=== PATIENT | male | born 1960 | race Caucasian/White ===

== ENCOUNTER 2017-03-19 23:19 | Inpatient (IN) | payer SELFPAY ==
[2017-03-19] MEDS ORDERED: IPRATROPIUM/ALBUTEROL 3 ML VIAL NEB ONE (23:55)
--- NOTE | 2017-03-19 23:58 | ED.PDOC ---
History of Present Illness - General Chief Complaint: Abdominal Pain Stated Complaint: left abd pain, unable to get FSBS at home Time Seen by Provider: 03/19/17 23:22 Source: patient, RN notes reviewed, Vital Signs reviewed Exam Limitations: no limitations - History of Present Illness Initial Comments: Patient c/o L flank pain. Pain started today. He just finished a 10 day course of Zithromax for pneumonia but is not really feeling better. No F/C. No urinary symptoms. No N/V/D. Was not able to get a reading on his glucometer at home and is concerned his BS is high. Timing/Duration: 24 hours Severity: mild Improving Factors: nothing Worsening Factors: nothing Associated Symptoms: cough Allergies/Adverse Reactions: Allergies Aspirin Allergy (Verified 03/19/17 23:53) Penicillins Allergy (Verified 03/19/17 23:53) Home Medications: Ambulatory Orders Lisinopril 40 mg PO DAILY 06/29/14 Albuterol Sulfate Nebs 1 dose NEB Q6HR PRN 10/05/15 Ipratropium/Albuterol [Duoneb] 3 ml INH QID #100 vial 10/08/15 Acetaminophen [Tylenol 8 Hour] 650 mg PO PRN 03/19/17 Albuterol Inhaler [Ventolin Hfa Inhaler] 1 puff INH PRN 03/19/17 Cetirizine HCl 10 mg PO DAILY 03/19/17 Fluticasone/Salmeterol 500/50 [Advair Diskus] 1 puff INH 03/19/17 Potassium 1 ea PO DAILY 03/19/17 Metformin HCl [Metformin HCl ER] 500 mg PO BID 03/20/17 Prednisone 50 mg PO PRN 03/20/17 Review of Systems - Review of Systems Constitutional: States: malaise. Denies: chills, fever EENTM: States: nose congestion, other - Sinus congestion Respiratory: States: cough, short of breath Cardiology: States: no symptoms reported Gastrointestinal/Abdominal: States: abdominal pain - L flank, diarrhea, nausea, vomiting Genitourinary: States: no symptoms reported Musculoskeletal: States: no symptoms reported Skin: States: no symptoms reported Neurological: States: no symptoms reported Past Medical History (General) - Patient Medical History Hx Seizures: No Hx Stroke: No Hx Dementia: No Hx Asthma: Yes Hx of COPD: Yes Hx Cardiac Disorders: No Hx Congestive Heart Failure: No Hx Pacemaker: No Hx Hypertension: Yes Hx Thyroid Disease: No Hx Diabetes: Yes Hx Gastroesophageal Reflux: No Hx Renal Disease: No Hx Cancer: No Hx of HIV: No Hx Hepatitis C: No Hx MRSA: No Surgical History: other - Vaccination History Hx Tetanus, Diphtheria Vaccination: Yes Hx Influenza Vaccination: No Hx Pneumococcal Vaccination: No Immunizations Up to Date: Yes - Social History Hx Tobacco Use: No Hx Chewing Tobacco Use: Yes Hx Alcohol Use: No Hx Substance Use: No Hx Substance Use Treatment: No Hx Depression: No Feels Threatened In Home Enviroment: No Feels Threatened In a Relationship: No Hx Physical Abuse: No Hx Emotional Abuse: No Hx Suspected Abuse: No - Female History Patient : No Family Medical History - Family History Mother Family History: Unknown Name: Phoebe Logan Living Status: Age at (years of age): 62 Cause of : [place] Hx Family Asthma: No Hx Family Congestive Heart Failure: Yes - Mothers side. Hx Family Hypertension: Yes - Siblings. Hx Family Stroke: No Hx Cardiac Disease: Yes - Siblings Hx Family Diabetes: Yes - Siblings Hx Family Cancer: Yes - Sister w/skin CA. Father Family History: Unknown Living Status: Still Living Physical Exam - Physical Exam General Appearance: Alert, Comfortable, No apparent distress, Well Developed, Well Groomed, Well Hydrated, Well Nourished Ears, Nose, Throat: hearing grossly normal, nasal congestion - with green drainage Neck: non-tender, full range of motion, supple Respiratory: no respiratory distress, decreased breath sounds - bilateral bases , wheezing, inspiration Cardiovascular/Chest: regular rate, rhythm, no gallop, no murmur Gastrointestinal/Abdominal: normal bowel sounds, non tender, soft, no organomegaly, no pulsatile mass Back Exam: no CVA tenderness Neurologic: alert, normal mood/affect, oriented x 3 Skin Exam: normal color, warm/dry Comments: Vital Signs - 24 hr 03/19/17 03/19/17 23:35 23:44 Temperature 98.7 F Pulse Rate [ 116 H 116 H monitor] Respiratory 20 20 Rate Blood Pressure 150/76 [Left Arm] O2 Sat by Pulse 86 L Oximetry Progress - Progress Progress: 03/20/17 00:50 Patient with pneumonia that has failed outpatient treatment. Will admit for IV antibiotics. Will draw blood cultures and Lactic Acid. Discussed with hospitalist who agrees to admission - Results/Orders Results/Orders: Laboratory Tests 03/19/17 03/19/17 00:05 00:05 WBC 15.8 H RBC 5.26 Hgb 14.5 Hct 43.3 MCV 82.5 MCH 27.7 MCHC 33.5 RDW 13.2 Plt Count 338 MPV 7.1 L Absolute Neuts (auto) 12.90 H Absolute Lymphs (auto) 1.60 Absolute Monos (auto) 1.10 H Absolute Eos (auto) 0.10 Absolute Basos (auto) 0.10 Neutrophils % 81.7 H Lymphocytes % 10.2 L Monocytes % 6.9 Eosinophils % 0.8 L Basophils % 0.4 Sodium 135 Potassium 3.5 L Chloride 100 L Carbon Dioxide 25 Anion Gap 13.5 BUN 20 H Creatinine 0.72 BUN/Creatinine Ratio 27.8 H Random Glucose 299 H Serum Osmolality 283.9 Calcium 9.5 Total Bilirubin 0.6 AST 14 ALT 22 Alkaline Phosphatase 120 Serum Total Protein 8.2 Albumin 3.8 Globulin 4.4 H Albumin/Globulin Ratio 0.9 L - EKG/XRAY/CT XRAY: chest - L lower and mid lung pneumonia Departure - Departure Clinical Impression: Diabetes mellitus type 2, uncontrolled, without complications Pneumonia involving left lung Qualifiers: Pneumonia type: due to unspecified organism Lung location: lower lobe of lung Qualified Code(s): J18.9 - Pneumonia, unspecified organism Time of Disposition: 00:52 Disposition: Admit Patient Condition: Poor Departure Forms: ED Discharge - Pt. Copy, Patient Portal Self Enrollment Instructions: DI for Abdominal Pain-Adult Referrals: Abi Laurent NP [Primary Care Provider] - 1-2 Weeks Home Medications: Ambulatory Orders Lisinopril 40 mg PO DAILY 06/29/14 Albuterol Sulfate Nebs 1 dose NEB Q6HR PRN 10/05/15 Ipratropium/Albuterol [Duoneb] 3 ml INH QID #100 vial 10/08/15 Acetaminophen [Tylenol 8 Hour] 650 mg PO PRN 03/19/17 Albuterol Inhaler [Ventolin Hfa Inhaler] 1 puff INH PRN 03/19/17 Cetirizine HCl 10 mg PO DAILY 03/19/17 Fluticasone/Salmeterol 500/50 [Advair Diskus] 1 puff INH 03/19/17 Potassium 1 ea PO DAILY 03/19/17 Metformin HCl [Metformin HCl ER] 500 mg PO BID 03/20/17 Prednisone 50 mg PO PRN 03/20/17 Decision To Admit - Decistion To Admit Decision to Admit Reason: Admit from ER - for pneumonia that has failed outpatient treatment
--- NOTE | 2017-03-20 00:29 | RAD ---
Procedure: XR CHEST 2 VIEWS Exam Date: 03/20/2017 Ordering Provider: Kemi Walters Clinical Indication: Cough/congestion Comparison: 10/07/2015 Findings: The heart is not enlarged. Pulmonary vasculature is normal. Mediastinal contour is normal. Aortic contour is normal. Infiltrates in the left mid and lower lung are suspicious for pneumonia. Right lung is clear. No pleural effusion. There is no pneumothorax. There is no acute bony or soft tissue abnormality. Old healed fracture of the left clavicle. Impression: 1. Infiltrates in the left mid and lower lung are suspicious for pneumonia. 2. Follow-up radiographs in 6-8 weeks is recommended to document resolution. Electronically signed by: Osman Rudd MD 03/20/2017 12:28 AM CDT
--- NOTE | 2017-03-20 01:18 | HP ---
SUPERVISING PHYSICIAN: Ganesh Ha M.D. CHIEF COMPLAINT: Left abdominal pain. Unable to get fasting blood sugar at home. HISTORY OF PRESENT ILLNESS: Mr. Logan is a 56 year-old male patient that presented to the Emergency Department complaining of left flank pain that started on the same day of admission. He just finished a 10 day course of Zithromax for pneumonia that he reported not feeling any better after completion. He denied any nausea, vomiting or diarrhea. He does have a history of diabetes and at home was unable to get a reading on his glucometer, and was concerned that his blood sugar was high thus he presented to the Emergency Department. In the Emergency Department, initial laboratory studies showed that he had a white count of 15.8 with a left shift. His chemistries showed glucose of 299 with potassium 3.5, BUN 20, creatinine 0.72. Lactic acid 1.6. Urinalysis showed just 500 glucose, otherwise within normal limits. Chest x-ray per radiology interpretation showed infiltrate in the left mid and lower lung suspicious for pneumonia. Vital signs in the Emergency Department showed that he had moderate hypoxia with a saturation of 86 on room air. He was afebrile with blood pressure 150/76, heart rate 116. Given the findings of left sided pneumonia with leukocytosis and having recently been on a 10 day course of antibiotics but failing to improve, and showing some hypoxia on admission at room air, the patient now is going to be admitted for treatment of left sided pneumonia community acquired having failed to respond to outpatient treatment plan. In regards to the abdominal pain, the patient had no abdominal pain on exam. It was felt that the pain he was describing was more related to the underlying pneumonia. He was admitted to the Medical/Surgical floor in stable condition. PAST MEDICAL HISTORY: 1. Chronic obstructive pulmonary disease with asthma. 2. Type 2 diabetes mellitus on insulin. 3. Hypertension. 4. History of H. pylori infection in 2015. 5. Diffuse joint pain, utilizes cane for walking secondary to right hip pain. PAST SURGICAL HISTORY: 1. Sinus polyps removed. HOME MEDICATIONS: 1. Prednisone 50 mg daily. 2. Tylenol 600 mg daily p.r.n. 3. Cetirizine 10 mg daily. 4. Albuterol inhaler 1 puff inhaled daily as needed. 5. Metformin 500 mg twice daily. 6. Lisinopril 40 mg daily. 7. DuoNeb treatments q.i.d. 8. Advair Diskus 1 puff inhaled daily. 9. Albuterol sulfate nebs every 6 hours p.r.n. ALLERGIES: ASPIRIN AND PENICILLIN. FAMILY HISTORY: Unremarkable. SOCIAL HISTORY: The patient is . Lives in [place]. 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 He smoked many years but quit at 22 years of age. He denies any alcohol or illicit drug use. REVIEW OF SYSTEMS: GENERAL: Malaise but denies any fever or chills. HEENT: Notes some nasal congestion and sinus congestion. RESPIRATORY: Notes shortness of breath and cough as noted in the History of Present Illness. CARDIOVASCULAR: Denies any chest pains, palpitations or syncopal episodes. GASTROINTESTINAL: Abdominal pain left flank but denies any nausea, vomiting or diarrhea. GENITOURINARY: Denies any dysuria, increased frequency or other urinary symptoms. MUSCULOSKELETAL: As noted in the history of present illness, hip pain, chronic. NEUROLOGIC: Denies any neurological deficits. PHYSICAL EXAMINATION: VITAL SIGNS: Admission temperature 98.7 in the Emergency Department with pulse 116, blood pressure 150/76, respirations 20, satting 96% on room air. After breathing treatments and oxygen on admission to the Medical Surgical floor, sats were 92%, blood pressure 121/71. Admission weight 95.3 kg. GENERAL: The patient appears to be in no distress. He does appear ill but well hydrated and well nourished. HEENT: Tympanic membranes are clear bilaterally. There is some nasal congestion with some green drainage as noted. Nares are erythematous and swollen. NECK: Supple, full range of motion without any jugular venous distention. CHEST: Decreased breath sounds in the bases bilaterally with some mild inspiratory wheezing but no rales or rhonchi. CARDIOVASCULAR: Regular rate and rhythm without appreciable murmurs, gallops, or rubs. ABDOMEN: Soft, non-tender. Positive bowel sounds. NEUROLOGIC: He is alert and oriented times three. LABORATORY: White count 15.8 with a shift on the differential. Chemistries showed low sodium at 3.5 with BUN 20, creatinine 0.72, glucose 299. Liver functions showed to be within normal limits. Lactic acid was 1.6. Urinalysis just shows trace of glucose on dipstick, otherwise within normal limits. MICROBIOLOGY: Sputum culture is pending. Blood cultures are pending. RADIOLOGY: Chest x-ray per radiology interpretation shows infiltrates in the left mid and lower lung suspicious for pneumonia. ASSESSMENT: 1. Exacerbation of chronic obstructive pulmonary disease with a history of bronchitis/asthma having failed to respond to recent outpatient treatment plan for pneumonia now showing increasing infiltrates on the left side for left sided pneumonia felt to be community acquired. 2. Left sided pneumonia having failed to respond to outpatient treatment and community acquired now requiring parenteral antibiotics and aggressive pulmonary hygiene with bronchodilators. 3. Type 2 diabetes mellitus complicated from previous corticosteroid administration as an outpatient. 4. Hypertension. 5. Chronic right hip pain. 6. Moderate leukocytosis secondary to underlying community acquired left sided pneumonia. 7. Electrolyte imbalance with mild hypokalemia secondary to poorly controlled blood sugars. 8. Renal insufficiency likely prerenal azotemia secondary to underlying dehydration and complicated by poorly controlled blood sugars. PLAN: The patient will be admitted for treatment of left sided pneumonia having failed to respond to outpatient treatment plan. He will be started on parenteral antibiotics to include Levaquin as he failed to respond to Azithromycin 500 mg for 10 days. Will hold off on corticosteroids at this time because he just has minimal wheezing. Will start him on q.i.d. DuoNeb treatments and aggressive pulmonary hygiene including CPT. Will plan to repeat laboratory studies in the morning to include CBC and BMP. Will start him on DVT prophylaxis and restart his medications when they have been updated and verified. Anticipated length of stay to be 2 to 3 days. Until then, will continue to monitor the patient closely and treat appropriately. Once clinically stable enough to be discharged, he will need close clinical followup with his primary care provider, Javy Peters. In regards to dehydration, will start him on some IV fluids as well as to help replace his potassium. He will be started on normal saline with 20 of potassium at 100 an hour. #[id number] [facility]
[2017-03-20] MEDS ORDERED: traMADol HCL 50 MG TAB PO ONE (01:52)
[2017-03-20] MEDS ORDERED: BENZONATATE PERLES 100 MG CAP PO ONE (01:52)
[2017-03-20] MEDS ORDERED: SODIUM CHLORIDE 0.9% (FLUSH) 10 ML SYG IV PRN (01:53)
[2017-03-20] MEDS ORDERED: GLUCAGON INJ 1 MG VIAL SUBCU PRN (01:53)
[2017-03-20] MEDS ORDERED: ACETAMINOPHEN 325 MG TAB PO PRN (01:53)
[2017-03-20] MEDS ORDERED: ALBUTEROL SULFATE 2.5 MG/3 ML VIAL NEB PRN (01:53)
[2017-03-20] MEDS ORDERED: DEXTROSE 50% 25 GM/50 ML SYG IV PRN (01:53)
[2017-03-20] MEDS: levoFLOXacin 750MG IV 750 MG in PREMIX BAG 1 BAG IVPB SCH (02:06)
[2017-03-20] MEDS: IV SET AND CAP CHANGE INJ INJ SCH (02:53)
[2017-03-20] MEDS: KCL 20 MEQ/NS 1,000 ML IVS PRN ×3 (03:24→23:59)
[2017-03-20] MEDS: INSULIN LISPRO 100 UNITS/ML PEN SUBCU SCH ×4 (07:26→21:09)
[2017-03-20] MEDS: metFORMIN XR 500 MG TAB.ER.24 PO SCH ×2 (09:01→16:34)
[2017-03-20] MEDS: SODIUM CHLORIDE 0.9% (FLUSH) 10 ML SYG IV SCH ×2 (09:01→21:11)
[2017-03-20] MEDS: CETIRIZINE HCL 10 MG TAB PO SCH (09:01)
[2017-03-20] MEDS: IPRATROPIUM/ALBUTEROL 3 ML VIAL INH SCH ×4 (09:15→20:00)
--- NOTE | 2017-03-20 22:10 | PCM.CORE ---
Physician DVT/VTE - Nurse DVT Assessment & Total Each Risk Factor Represents 1 Point: Age 41-60 Each Risk Factor is 1 Point: Obesity (BMI >25), Serious Lung disease (pnemonia < 1month, COPD, emphysema,etc) DVT Assessment Score: 3 - 3-4 High Risk Treatments: Early Ambulation *, Sequential Compression Device Pharmacological: Enoxaparin 40 mg SQ Daily
[2017-03-20] MEDS ORDERED: ENOXAPARIN SODIUM 40 MG/0.4 ML SYG SUBCU SCH (22:30)
[2017-03-21] MEDS: levoFLOXacin 750MG IV 750 MG in PREMIX BAG 1 BAG IVPB SCH (02:25)
--- NOTE | 2017-03-21 06:54 | RAD ---
Procedure: XR CHEST 2 VIEWS Exam Date: 03/21/2017 Ordering Provider: Eric Fairbanks NP Clinical Indication: Pneumonia Comparison: 03/20/2017 Findings: The heart is not enlarged. Pulmonary vasculature is normal. Mediastinal contour is normal. Aortic contour is normal. Infiltrates in the left mid and lower lung are unchanged from prior. No pleural effusion. There is no pneumothorax. There is no acute bony or soft tissue abnormality. Old healed fracture of the left clavicle. Impression: 1. Infiltrates in the left mid and lower lung are suspicious for pneumonia and are not significantly changed from prior. Electronically signed by: Osman Rudd MD 03/21/2017 6:54 AM CDT
[2017-03-21] MEDS: INSULIN LISPRO 100 UNITS/ML PEN SUBCU SCH ×4 (07:48→21:15)
[2017-03-21] MEDS: metFORMIN XR 500 MG TAB.ER.24 PO SCH ×2 (07:49→17:20)
[2017-03-21] MEDS: IPRATROPIUM/ALBUTEROL 3 ML VIAL INH SCH ×4 (08:26→20:15)
[2017-03-21] MEDS: SODIUM CHLORIDE 0.9% (FLUSH) 10 ML SYG IV SCH ×2 (09:06→21:15)
[2017-03-21] MEDS: CETIRIZINE HCL 10 MG TAB PO SCH (09:07)
[2017-03-21] MEDS ORDERED: ENOXAPARIN SODIUM 40 MG/0.4 ML SYG SUBCU ONE (19:53)
--- NOTE | 2017-03-21 20:54 | PN ---
DATE: 03/21/17 SUPERVISING PHYSICIAN: Angelo Rodriguez M.D. SUBJECTIVE: The patient feels like he is doing better today. He is having much less effort in pulling a full breath. He has not had any wheezing. He remains afebrile. OBJECTIVE: VITAL SIGNS: Temperature 98.2, pulse 96, blood pressure 132/73, respirations 19, satting 93% on nasal cannula at 2 liters at rest. I's and O's show a negative balance of 465 with 3010 in, 3475 out. Weight 95.3 kg. LUNGS: Breath sounds continue to be diminished throughout, but somewhat improved from admission. Continues to have some very faint wheezing bilaterally more notable on expiratory phase. HEART: Regular rate and rhythm. ABDOMEN: Soft, non- tender. Positive bowel sounds. NEUROLOGIC: He remains alert and oriented. LABORATORY: Shows white count to be improving, it is down to 12.4 with hemoglobin 12.4, hematocrit 37.6, platelet count 232,000. Differential continues to show a left shift. Chemistries show normal electrolytes with potassium 3.8, BUN 12, creatinine 0.58 with glucoses showing somewhat improved being from 162 to 207, calcium 8.3. MICROBIOLOGY: Sputum culture preliminary shows further need for incubation. Blood cultures remain negative after 24 hours. RADIOLOGY: Chest x-ray today per radiology interpretation shows infiltrates in the left mid and lower lung suspicious for pneumonia but not a significant change from previous exams. ASSESSMENT: 1. Exacerbation of chronic obstructive pulmonary disease with a history of bronchitis/asthma having failed to respond to recent outpatient treatment plan for pneumonia now showing increasing infiltrates in the left side for left sided pneumonia felt to be community acquired having been on Azithromycin for 10 days. 2. Left sided pneumonia having failed to respond to outpatient treatment plan felt to be community acquired now requiring initiation of parenteral antibiotics to include Levaquin along with continued aggressive pulmonary hygiene and bronchodilator therapy. 3. Type 2 diabetes mellitus complicated from previous corticosteroid administration as an outpatient showing to be improving. 4. Hypertension. 5. Chronic right hip pain. 6. Moderate leukocytosis secondary to underlying community acquired left sided pneumonia showing improvement after initiation of parenteral antibiotics to include Levaquin. 7. Electrolyte imbalance on admission with mild hypokalemia secondary to poorly controlled blood sugars, improved after IV therapy and started on a sliding scale. 8. Renal insufficiency likely prerenal azotemia secondary to underlying dehydration and complicated by poorly controlled blood sugars showing improvement after initiation of IV fluids. PLAN: The patient is showing some improvement, but would certainly benefit from an additional 24 to 48 hours of aggressive pulmonary hygiene and parenteral antibiotics that include the initiation of Levaquin. At this point, will hold off on corticosteroids as he is showing improvement and not wheezing near as much as he was on admission. He was started on DVT prophylaxis and his home medications have been resumed as per previous hospitalization. Will anticipate possible discharge tomorrow or Sunday. Until then, will continue to monitor the patient closely. Once the patient is clinically stable and can be discharged, he will need close clinical followup with his primary care provider , Javy Peters, Nurse Practitioner. #[id number] [facility]
[2017-03-21] MEDS ORDERED: SODIUM CHLORIDE 0.9% (FLUSH) 10 ML SYG IV SCH (21:00)
[2017-03-21] MEDS: ENOXAPARIN SODIUM 40 MG/0.4 ML SYG SUBCU SCH (21:15)
[2017-03-22] MEDS: levoFLOXacin 750MG IV 750 MG in PREMIX BAG 1 BAG IVPB SCH (02:25)
--- NOTE | 2017-03-22 06:59 | RAD ---
Clinical History : pneumonia , MAIN Exam : PA and lateral views of the chest 03/22/2017 7:00 AM CDT Comparisons : PA and lateral views of the chest March 21, 2017 Findings : The lung bases are excluded on this exam was limited evaluation. There is stable confluent left lower lobe airspace disease. The lungs are clear without focal consolidation or pleural effusion. The heart is normal in size. The mediastinal contours are normal in appearance. The thoracic spine is age appropriate. The shoulders are unremarkable. Limited evaluation of the upper abdomen demonstrates no gross abnormalities. Impression: 1. Exclusion of the lung bases limiting evaluation. 2. Otherwise grossly stable left lower lobe airspace disease. Electronically signed by: Dianne Caceres MD 03/22/2017 6:59 AM CDT
[2017-03-22] MEDS: INSULIN LISPRO 100 UNITS/ML PEN SUBCU SCH ×4 (07:43→21:03)
[2017-03-22] MEDS: metFORMIN XR 500 MG TAB.ER.24 PO SCH ×2 (07:44→16:26)
[2017-03-22] MEDS: IPRATROPIUM/ALBUTEROL 3 ML VIAL INH SCH ×4 (08:13→20:05)
[2017-03-22] MEDS: CETIRIZINE HCL 10 MG TAB PO SCH (08:54)
[2017-03-22] MEDS: SODIUM CHLORIDE 0.9% (FLUSH) 10 ML SYG IV SCH ×2 (08:54→21:03)
--- NOTE | 2017-03-22 19:04 | PN ---
DATE: 03/22/17 SUPERVISING PHYSICIAN: Angelo Rodriguez M.D. SUBJECTIVE: The patient is sitting in his bed. He still says he is quite weak at times, but he is feeling better and feels that his condition has improved. He is still coughing quite a bit of sputum up, but otherwise he does not complain of chest pain, shortness of breath or nausea, vomiting or diarrhea. OBJECTIVE: He is afebrile. Heart rate 93, blood pressure 131/74, respiratory rate 20, O2 sat is 91% on 2 liters nasal cannula. RESPIRATORY: Breath sounds are diminished throughout. He does have a few expiratory wheezes but it is mostly in the apices. CARDIAC: Regular rate and rhythm. ABDOMEN: Soft, nondistended, non-tender. Bowel sounds are positive. NEUROLOGIC: He is awake, alert and oriented times three. LABORATORY: WBCs have slightly improved to 11.2 and neutrophils have normalized to 76.7. Hemoglobin 13.3 and hematocrit 39.8. Metabolic panel is basically within normal limits with the exception of his blood sugar is 187. Preliminary sputum culture shows a suspicious colony and needs further incubation. Preliminary blood cultures show no growth at 48 hours. Chest x-ray shows an exclusion of the lung bases with limiting evaluation which makes it a poor study. All other labs and films have been reviewed via the EMR. ASSESSMENT: 1. Exacerbation of chronic obstructive pulmonary disease with a history of bronchitis/asthma having failed to respond to recent outpatient treatment plan for pneumonia now showing increasing infiltrates in the left side for left sided pneumonia felt to be community acquired having been on Azithromycin for 10 days. 2. Left sided pneumonia having failed to respond to outpatient treatment plan felt to be community acquired now requiring initiation of parenteral antibiotics to include Levaquin along with continued aggressive pulmonary hygiene and bronchodilator therapy. 3. Type 2 diabetes mellitus complicated from previous corticosteroid administration as an outpatient showing to be improving. 4. Hypertension. 5. Chronic right hip pain. 6. Moderate leukocytosis secondary to underlying community acquired left sided pneumonia showing improvement after initiation of parenteral antibiotics to include Levaquin. 7. Electrolyte imbalance on admission with mild hypokalemia secondary to poorly controlled blood sugars, improved after IV therapy and started on a sliding scale. 8. Renal insufficiency likely prerenal azotemia secondary to underlying dehydration and complicated by poorly controlled blood sugars showing improvement after initiation of IV fluids. PLAN: We will plan for discharge tomorrow as long as the patient is improving and will need to be sent out on Levaquin unless his sputum culture shows that he needs to be on a different antibiotic. We will continue with good pulmonary toilet. Will do a chest x-ray in the morning, hopefully it will be a better study. Will continue to monitor the patient closely and followup as needed. [facility][id number] [facility]
[2017-03-22] MEDS: ENOXAPARIN SODIUM 40 MG/0.4 ML SYG SUBCU SCH (21:03)
[2017-03-23] MEDS: levoFLOXacin 750MG IV 750 MG in PREMIX BAG 1 BAG IVPB SCH (02:03)
[2017-03-23] MEDS: IV SET AND CAP CHANGE INJ INJ SCH (02:05)
--- NOTE | 2017-03-23 08:02 | RAD ---
Procedure: XR CHEST 2 VIEWS Exam Date: 03/23/2017 Ordering Provider: MG CARCAMO Clinical Indication: pna Comparison: 03/22/2017 Findings: The heart is not enlarged. Pulmonary vasculature is prominent. Mediastinal contour is normal. Aortic contour is normal. Stable left basilar infiltrates. Right basilar infiltrates are more apparent on today's exam. Subsegmental atelectasis/scarring in the left midlung field. No pleural effusion. There is no pneumothorax. There is no acute bony or soft tissue abnormality. Impression: 1. Stable left basilar infiltrates. 2. Right basilar infiltrates are more apparent on today's exam. 3. No other significant interval change. Electronically signed by: Osman Rudd MD 03/23/2017 8:01 AM CDT
[2017-03-23] MEDS: INSULIN LISPRO 100 UNITS/ML PEN SUBCU SCH ×2 (08:12→12:53)
[2017-03-23] MEDS: metFORMIN XR 500 MG TAB.ER.24 PO SCH (08:13)
[2017-03-23] MEDS: IPRATROPIUM/ALBUTEROL 3 ML VIAL INH SCH (08:40)
[2017-03-23] MEDS: CETIRIZINE HCL 10 MG TAB PO SCH (10:09)
[2017-03-23] MEDS: SODIUM CHLORIDE 0.9% (FLUSH) 10 ML SYG IV SCH (10:09)
[2017-03-23 10:36] VITALS: BP 129/75; TEMP 97.6; O2SAT 94
--- NOTE | 2017-03-29 08:18 | DS ---
SUPERVISING PHYSICIAN: Angelo Rodriguez MD DISCHARGE DIAGNOSIS: 1. Exacerbation of chronic obstructive pulmonary disease with a history of bronchitis/asthma having failed to respond to recent outpatient treatment plan for pneumonia now showing increasing infiltrates in the left side for left sided pneumonia felt to be community acquired having been on Azithromycin for 10 days. 2. Left sided pneumonia having failed to respond to outpatient treatment plan felt to be community acquired now requiring initiation of parenteral antibiotics to include Levaquin along with continued aggressive pulmonary hygiene and bronchodilator therapy. 3. Type 2 diabetes mellitus complicated from previous corticosteroid administration as an outpatient showing to be improving. 4. Hypertension. 5. Chronic right hip pain. 6. Moderate leukocytosis secondary to underlying community acquired left sided pneumonia showing improvement after initiation of parenteral antibiotics to include Levaquin. 7. Electrolyte imbalance on admission with mild hypokalemia secondary to poorly controlled blood sugars, improved after IV therapy and started on a sliding scale. 8. Renal insufficiency likely prerenal azotemia secondary to underlying dehydration and complicated by poorly controlled blood sugars showing improvement after initiation of IV fluids. HISTORY OF PRESENT ILLNESS: This is a 56-year-old male patient who presented to the Emergency Room on the date of admission complaining of left flank pain that had started earlier on day of admission. He had just finished a 10 day course of Zithromax from his primary care physician and he stated he did not feel any better after completion. He had no nausea, vomiting or diarrhea. He has a history of diabetes at home and was unable to get a reading on his glucometer. He was also concerned that his blood sugars were high. His initial lab studies in the Emergency Room showed in a white count of 15.8 with a left shift. Glucose was 299, potassium 3.5, BUN 20, creatinine 0.72, lactic acid 11.6. Urinalysis showed 500 glucose, otherwise within normal limits. Chest x-ray per radiology interpretation showed an infiltrate in the mid and left lower lung, suspicious for pneumonia. O2 saturation on room air was 86% and he was afebrile. Blood pressure 150/76, heart rate 116. Due to his chest x-ray showing pneumonia and leukocytosis and also failing outpatient therapy as well as some hypoxia and tachycardia on admission, the patient was admitted to the hospital. HOSPITAL COURSE: The patient was started on Levaquin. He was also given breathing treatments as well as good pulmonary hygiene. He improved clinically over the next day or two. His initial sputum was thought to be growing something, but ended up showing no growth after 48 hours. He was up ambulating in the hallways today. He had no drops in saturations. His vital signs remained stable. His heart rate did occasionally go up to above 100, but he had no symptoms of chest pain or shortness of breath. He can be discharged home today. DISCHARGE PLAN: He will be discharged home in stable condition. He is to resume his diabetic diet, increase activity as tolerated. He is to followup with his primary care provider, Javy Peters, on 03/26/17 at 8 AM. He is to return to the hospital or his primary care provider's clinic for any further problems. DISCHARGE MEDICATIONS: 1. Lisinopril. 2. Potassium. 3. Advair Diskus. 4. Cetirizine. 5. Albuterol. 6. Acetaminophen. 7. Metformin. 8. Levaquin. Dr. Rodriguez is the collaborating physician and available for consultation. #[id number] [facility]
== END 2017-03-23 14:30 | disposition home or self-care (01) | DRG 190 ==
LOC: ER 23:19 → OBSVTOIN 03-20 01:17 → MS 03-20 01:17
PROVIDERS: ADMIT Nurse Practitioner Family; ATTEND Nurse Practitioner Acute Care
DX: J44.0 Chronic obstructive pulmonary disease with (acute) lower respiratory infection (principal); J18.9 Pneumonia, unspecified organism; J44.1 Chronic obstructive pulmonary disease with (acute) exacerbation; I10 Essential (primary) hypertension; G89.29 Other chronic pain; M25.551 Pain in right hip; E11.65 Type 2 diabetes mellitus with hyperglycemia; E87.6 Hypokalemia; N28.9 Disorder of kidney and ureter, unspecified; E86.0 Dehydration; Z88.0 Allergy status to penicillin; Z88.6 Allergy status to analgesic agent; Z79.899 Other long term (current) drug therapy; Z79.84 Long term (current) use of oral hypoglycemic drugs

== ENCOUNTER → 2017-04-12 | Outpatient (CLI) | payer SELFPAY ==
--- NOTE | 2017-04-13 09:10 | RAD ---
EXAM DESCRIPTION: Hip,Right 2 Views CLINICAL HISTORY: PAIN IN RIGHT HIP COMPARISON: None Available. TECHNIQUE: AP/frog leg lateral FINDINGS: The bones are normally mineralized but severe [id number] degenerative arthropathy with subcortical cystic changes is present involving both the acetabulum and femoral head without significant collapse. Advanced osteoarthritis or perhaps severe degenerative changes from old osteonecrosis should be considered. The femoral neck and intertrochanteric region are intact. IMPRESSION: Severe end-stage degenerative arthropathy of the right hip with [id number] appearance and marked cystic erosive changes of both sides of the joint. Electronically signed by: Ganesh Alamo MD 04/13/2017 9:09 AM CDT
== END | disposition home or self-care (01) ==
LOC: RAD 13:48
PROVIDERS: ATTEND Nurse Practitioner Family
DX: M25.551 Pain in right hip (principal)

== ENCOUNTER → 2017-08-16 | Outpatient (CLI) | payer SELFPAY | END | disposition home or self-care (01) | LOC: YCFC.O 09:34 | PROVIDERS: ATTEND Orthopaedic Surgery | DX: M16.11 Unilateral primary osteoarthritis, right hip (principal) ==

== ENCOUNTER → 2017-08-17 | Outpatient (CLI) | payer SELFPAY ==
--- NOTE | 2017-08-20 08:23 | RAD ---
EXAM DESCRIPTION: Knee,Left Complete CLINICAL HISTORY: 57 yearsMale, LEFT KNEE PAIN. M25.562 COMPARISON: None. IMPRESSION: 4 views of the left knee demonstrate no evidence of acute fracture, dislocation, or destructive osseous lesion. Mild changes of osteoarthritis are present involving all 3 compartments of the knee. There is mild narrowing of the joint spaces and marginal osteophytes. Scattered vascular calcifications. There is a suprapatellar joint effusion present. If indicated, MRI may further evaluate. Electronically signed by: Drake Colón MD 08/20/2017 8:21 AM CDT
--- NOTE | 2017-08-20 08:25 | RAD ---
EXAM DESCRIPTION: Knee,Right Complete CLINICAL HISTORY: 57 yearsMale, RIGHT KNEE PAIN. M25.561 COMPARISON: None. IMPRESSION: 4 views of the right knee demonstrate no evidence of acute fracture, dislocation, or destructive osseous lesion. Mild changes of osteoporosis arthritis are present involving all 3 compartments of the knee with narrowing of the joint spaces and marginal osteophytes. There is a suprapatellar joint effusion present. If indicated, MRI may further evaluate. Electronically signed by: Drake Colón MD 08/20/2017 8:24 AM CDT
--- NOTE | 2017-08-20 08:29 | RAD ---
EXAM DESCRIPTION: Pelvis CLINICAL HISTORY: BILATERAL HIP PAIN. M25.552, M25.551. COMPARISON: None FINDINGS: Single frontal view the pelvis. Complete joint space loss with subchondral sclerosis and cystlike change of the right hip is present consistent with advanced endstage osteoarthritis. Contralateral left hip is normal in appearance. Mild symmetric bilateral degenerative sacroiliitis is present. Pelvic ring is intact. Osteitis pubis-normal patient's age. IMPRESSION: End-stage degenerative osteoarthritis of the right hip. Radiographically intact contralateral left hip. Electronically signed by: Dontae Fabian MD 08/20/2017 8:28 AM CDT
--- NOTE | 2017-08-20 08:29 | RAD ---
EXAM DESCRIPTION: Wrist, left 3 Views CLINICAL HISTORY: 57 yearsMale, LEFT WRIST PAIN. M25.532 COMPARISON: None. IMPRESSION: 3 views of the left wrist demonstrate severe arthritis with joint space narrowing of the radiocarpal joints. There is subchondral sclerosis and cystic change in the distal radius as well as the distal ulna. Bone mineral density appears normal. The findings are nonspecific, but most likely secondary to osteoarthritis or posttraumatic arthritis. An inflammatory arthropathy is not excluded given the findings, and a baseline rheumatology consultation may be of benefit. Narrowing and hypertrophic changes of the scapholunate interval are demonstrated. Moderate degenerative changes in the STT joint. No evidence of acute fracture or destructive osseous lesion. Scattered vascular calcifications. Electronically signed by: Drake Colón MD 08/20/2017 8:28 AM CDT
--- NOTE | 2017-08-20 08:31 | RAD ---
EXAM DESCRIPTION: Wrist,Right 3 Views CLINICAL HISTORY: 57 yearsMale, RIGHT WRIST PAIN. M25.532 COMPARISON: None. IMPRESSION: 3 views of the right wrist demonstrate no evidence of acute fracture, dislocation, or destructive osseous lesion. There is mild narrowing of the radiocarpal joint spaces, with no radiographic evidence of subchondral sclerosis or cystic change. Mild degenerative changes noted in the STT and first carpometacarpal joints, likely secondary to osteoarthritis. Extensive vascular calcifications are demonstrated. Electronically signed by: Drake Colón MD 08/20/2017 8:29 AM CDT
== END | disposition home or self-care (01) ==
LOC: RAD 08:56
PROVIDERS: ATTEND Orthopaedic Surgery
DX: M25.561 Pain in right knee (principal); M25.551 Pain in right hip; M25.531 Pain in right wrist

== ENCOUNTER → 2017-08-24 | Outpatient (CLI) | payer SELFPAY | END | disposition home or self-care (01) | LOC: LAB.O 09:19 | DX: E11.9 Type 2 diabetes mellitus without complications (principal) ==

== ENCOUNTER 2017-10-25 13:59 | Emergency (ER) | payer SELFPAY ==
[2017-10-25 14:17] VITALS: TEMP 99.9
--- NOTE | 2017-10-25 15:21 | RAD ---
Study: Frontal and Lateral Views of the Chest. Indication: progressive weakness, wt loss Comparison: March 23, 2017. Impression: Heart size normal. Emphysema, otherwise lungs clear. No acute osseous abnormality. Electronically signed by: Iggy Page MD 10/25/2017 3:20 PM [facility]
[2017-10-25] MEDS: INSULIN LISPRO 100 UNITS/ML PEN SUBCU ONE (15:56)
--- NOTE | 2017-10-25 16:17 | ED.PDOC ---
History of Present Illness - General Chief Complaint: General Stated Complaint: weakness,weight loss Time Seen by Provider: 10/25/17 14:18 Source: patient Exam Limitations: no limitations - History of Present Illness Initial Comments: The patient is a 57-year-old male presenting to the emergency room secondary to symptoms of fatigue, abnormal weight loss, and increasing generalized weakness over the last 6 months. he denies any fevers. He has been diagnosed with rheumatoid arthritis and does take methotrexate and has been on it for the last 2 months. he is also a type II diabetic reporting borderline blood sugar control. He reports poor appetite for the last 5 or 6 months. He reports that he's lost approximately 60 pounds in the last 8 months. He has had a few episodes of nausea and vomiting without blood. He has regular bowel movements. he has no dizziness or syncope. He has no problems swallowing. He actually moves all extremities well have some mild generalized weakness on objective exam. He reports that he has a bad right hip that he has not yet had operated on. He is supposed to get his rheumatoid under control before he can do that. he reports starting to use a cane and a walker approximately 6 month He reports starting to use a wheelchair intermittently over the last 2 months. He does not report any significant falls. No new pain. he reports that over the last 2 weeks he has been having a harder time getting in and out of the wheelchair. His activity level has been very low. He has not been doing exercises. He was apparently told to come up here by his aerospace technician because the symptoms were not normal. I do agree they are not normal. No focal myalgias. No skin changes. Timing/Duration: unsure Severity: moderate Improving Factors: nothing Worsening Factors: nothing Associated Symptoms: loss of appetite, malaise, nausea/vomiting, weakness Allergies/Adverse Reactions: Allergies Aspirin Allergy (Verified 03/19/17 23:53) NSAIDs Allergy (Verified 10/25/17 14:19) Penicillins Allergy (Verified 03/19/17 23:53) Home Medications: Ambulatory Orders Lisinopril 40 mg PO DAILY 06/29/14 Albuterol Inhaler [Ventolin Hfa Inhaler] 1 puff INH PRN 03/19/17 Cetirizine HCl 10 mg PO DAILY 03/19/17 Fluticasone/Salmeterol 500/50 [Advair 500/50 Diskus] 1 puff INH BID 03/19/17 Metformin HCl [Metformin HCl ER] 500 mg PO BID 03/20/17 Albuterol Sulfate Nebs [Proventil Nebs] 2.5 mg INH QID PRN 03/22/17 Famotidine 20 mg PO DAILY #30 tab 10/25/17 Fluticasone Propionate (Nasal) [Allergy Relief] 50 mcg NA DAILY 10/25/17 Folic Acid 1 mg PO DAILY 10/25/17 Glyburide 2.5 mg PO DAILY 10/25/17 Methotrexate Sodium [Methotrexate] 6 each PO SA 10/25/17 Multiple Vitamin [Multi Vitamin Daily] 1 tab PO DAILY 10/25/17 Potassium 99 mg PO DAILY 10/25/17 traMADol 37.5MG/APAP 325MG [Ultracet] 1 tab PO Q4H PRN 10/25/17 Review of Systems - Review of Systems Constitutional: States: malaise, weakness - generalized EENTM: States: no symptoms reported Respiratory: States: no symptoms reported Cardiology: States: no symptoms reported Gastrointestinal/Abdominal: States: no symptoms reported Genitourinary: States: no symptoms reported Musculoskeletal: States: see HPI Skin: States: no symptoms reported Neurological: States: no symptoms reported, weakness Endocrine: States: unexplained weight loss All other Systems: No Change from Baseline Past Medical History (General) - Patient Medical History Hx Seizures: No Hx Stroke: No Hx Dementia: No Hx Asthma: Yes Hx of COPD: No Hx Cardiac Disorders: No Hx Congestive Heart Failure: No Hx Pacemaker: No Hx Hypertension: Yes Hx Thyroid Disease: No Hx Diabetes: Yes Hx Gastroesophageal Reflux: No Hx Renal Disease: No Hx Cancer: No Hx of HIV: No Hx Hepatitis C: No Hx MRSA: No - Vaccination History Hx Tetanus, Diphtheria Vaccination: Yes Hx Influenza Vaccination: No Hx Pneumococcal Vaccination: Yes - Social History Hx Tobacco Use: Yes Hx Chewing Tobacco Use: Yes Hx Alcohol Use: No Hx Substance Use: No Hx Substance Use Treatment: No Hx Depression: No Hx Physical Abuse: No Hx Emotional Abuse: No Hx Suspected Abuse: No - Female History Patient : No Family Medical History - Family History Mother Family History: Unknown Name: Phoebe Logan Living Status: Age at (years of age): 63 Cause of : [place] Hx Family Asthma: No Hx Family Congestive Heart Failure: Yes - Mothers side. Hx Family Hypertension: Yes - Siblings. Hx Family Stroke: No Hx Cardiac Disease: Yes - Siblings Hx Family Diabetes: Yes - Siblings Hx Family Cancer: Yes - Sister w/skin CA. Father Family History: Unknown Living Status: Still Living Physical Exam - Physical Exam General Appearance: Alert, Comfortable, No apparent distress Eye Exam: bilateral normal Ears, Nose, Throat: hearing grossly normal, normal ENT inspection, normal pharynx Neck: full range of motion, supple Respiratory: lungs clear, normal breath sounds, no respiratory distress, no accessory muscle use Cardiovascular/Chest: normal peripheral pulses, no edema, tachycardia - mild sinus tachycardia Peripheral Pulses: radial,right: 2+, radial,left: 2+, dorsalis pedis,right: 2+, dorsalis pedis,left: 2+ Gastrointestinal/Abdominal: non tender, soft Rectal Exam: deferred Back Exam: no CVA tenderness, no vertebral tenderness Extremity: normal range of motion, no pedal edema, no calf tenderness, normal capillary refill Neurologic: supply and distribution manager II-XII nml as tested, alert, normal mood/affect, oriented x 3 Skin Exam: normal color Comments: Vital Signs - 24 hr 10/25/17 10/25/17 14:13 15:15 Temperature 99.9 F H Pulse Rate [ 118 H 101 H Left Brachial] Respiratory 20 20 Rate Blood Pressure 160/73 138/72 [Left Arm] O2 Sat by Pulse 97 95 Oximetry Progress - Progress Progress: 10/25/17 16:20 the patient is a 57-year-old male presenting the emergency room secondary to a six-month progression of generalized weakness and weight loss. The patient is currently on methotrexate for rheumatoid arthritis. Weakness at this point does not appear to be focal and seems to be clinically more a progression of deconditioning. He should start an exercise program and does already have plans to do water aerobics. laboratory work largely looks reassuring. There is no elevation in muscle enzymes. He should be reevaluated by his aerospace technician in the near future to make sure they do not believe he is developing any myositis or myopathy related to his autoimmune disease or medication to treat it. He is to continue his folic acid. Prednisone is not a good option given his diabetes. he needs to discuss with his primary care doctor potentially changing his metformin to another medication as this may be causing some appetite suppression. Additionally I'm going to place the patient on Pepcid 20 mg daily for the next month and case gastritis is contributing to his weight loss. Additionally the patient does have some very mild anemia. It would be beneficial for him to have a referral made through his primary care doctor and evaluation with gastroenterology for possible EGD and colonoscopy. Mild anemia may be due to myelosuppression from medications as well.. Along with the anemia, he does have a mildly elevated globulin fraction, so referral from his primary care doctor to a supervisor component assembler may yet prove beneficial. he should follow-up with his primary care doctor next week. ER warnings are given for any acute change. - Results/Orders Results/Orders: Laboratory Tests 10/25/17 10/25/17 10/25/17 14:46 14:46 15:39 WBC 11.1 H RBC 4.17 L Hgb 11.4 L Hct 34.1 L MCV 81.7 MCH 27.3 MCHC 33.5 RDW 14.3 Plt Count 406 H MPV 6.3 L Absolute Neuts (auto) 8.20 H Absolute Lymphs (auto) 1.70 Absolute Monos (auto) 1.10 H Absolute Eos (auto) 0.10 Absolute Basos (auto) 0.10 Neutrophils % 74.0 Lymphocytes % 14.9 L Monocytes % 9.6 H Eosinophils % 1.0 Basophils % 0.5 Sodium 133 L Potassium 4.0 Chloride 100 L Carbon Dioxide 27 Anion Gap 10.0 L BUN 14 Creatinine 0.52 L BUN/Creatinine Ratio 26.9 H Random Glucose 235 H Serum Osmolality 274.4 L Calcium 9.0 Magnesium 1.8 Total Bilirubin 0.3 AST 18 ALT 25 Alkaline Phosphatase 81 Creatine Kinase 23 L CK-MB (CK-2) 0.6 CK-MB (CK-2) % Not Reportable Troponin I < 0.02 B-Natriuretic Peptide < 5.0 Serum Total Protein 7.4 Albumin 3.1 L Globulin 4.3 H Albumin/Globulin Ratio 0.7 L Amylase 39 Lipase 34 TSH 0.49 Urine Color Yellow Urine Appearance Clear Urine pH 6.0 Ur Specific [place] 1.010 Urine Protein Negative Urine Glucose (UA) 500 H Urine Ketones Negative Urine Blood Negative Urine Nitrite Negative Urine Bilirubin Negative Urine Urobilinogen 0.2 Ur Leukocyte Esterase Negative Urine RBC 0 Urine WBC 0-1 Ur Epithelial Cells 0 Urine Bacteria 0 chest x-ray appears benign. He does have long-standing findings of COPD Departure - Departure Clinical Impression: Physical deconditioning, Weight loss, abnormal Disposition: Discharge to Home or Self Care Condition: Fair Departure Forms: ED Discharge - Pt. Copy, Patient Portal Self Enrollment Instructions: DI for Muscle Weakness Diet: diabetic diet Activity: increase activity as tolerated Referrals: Laurel Fitch MD [Primary Care Provider] - 1-2 Weeks Prescriptions: Famotidine 20 mg PO DAILY #30 tab Home Medications: Ambulatory Orders Lisinopril 40 mg PO DAILY 06/29/14 Albuterol Inhaler [Ventolin Hfa Inhaler] 1 puff INH PRN 03/19/17 Cetirizine HCl 10 mg PO DAILY 03/19/17 Fluticasone/Salmeterol 500/50 [Advair 500/50 Diskus] 1 puff INH BID 03/19/17 Metformin HCl [Metformin HCl ER] 500 mg PO BID 03/20/17 Albuterol Sulfate Nebs [Proventil Nebs] 2.5 mg INH QID PRN 03/22/17 Famotidine 20 mg PO DAILY #30 tab 10/25/17 Fluticasone Propionate (Nasal) [Allergy Relief] 50 mcg NA DAILY 10/25/17 Folic Acid 1 mg PO DAILY 10/25/17 Glyburide 2.5 mg PO DAILY 10/25/17 Methotrexate Sodium [Methotrexate] 6 each PO SA 10/25/17 Multiple Vitamin [Multi Vitamin Daily] 1 tab PO DAILY 10/25/17 Potassium 99 mg PO DAILY 10/25/17 traMADol 37.5MG/APAP 325MG [Ultracet] 1 tab PO Q4H PRN 10/25/17 Additional Instructions: the patient is a 57-year-old male presenting the emergency room secondary to a six-month progression of generalized weakness and weight loss. The patient is currently on methotrexate for rheumatoid arthritis. Weakness at this point does not appear to be focal and seems to be clinically more a progression of deconditioning. He should start an exercise program and does already have plans to do water aerobics. if his primary care doctor can arrange for physical therapy that may prove even more beneficial. laboratory work largely looks reassuring. There is no elevation in muscle enzymes. He should be reevaluated by his aerospace technician in the near future to make sure they do not believe he is developing any myositis or myopathy related to his autoimmune disease or medication to treat it. He is to continue his folic acid. Prednisone is not a good option given his diabetes. he needs to discuss with his primary care doctor potentially changing his metformin to another medication as this may be causing some appetite suppression. Additionally I'm going to place the patient on Pepcid 20 mg daily for the next month and case gastritis is contributing to his weight loss. Additionally the patient does have some very mild anemia. It would be beneficial for him to have a referral made through his primary care doctor and evaluation with gastroenterology for possible EGD and colonoscopy. Mild anemia may be due to myelosuppression from medications as well.. Along with the anemia, he does have a mildly elevated globulin fraction, so referral from his primary care doctor to a supervisor component assembler may yet prove beneficial. he should follow-up with his primary care doctor next week. ER warnings are given for any acute change.
[2017-10-25 16:38] VITALS: BP 145/85
[2017-10-25 16:42] VITALS: O2SAT 96
== END 2017-10-25 16:42 | disposition home or self-care (01) ==
LOC: ER 13:59
DX: R63.4 Abnormal weight loss (principal); R53.81 Other malaise; M06.9 Rheumatoid arthritis, unspecified; D64.9 Anemia, unspecified; Z79.899 Other long term (current) drug therapy; J44.9 Chronic obstructive pulmonary disease, unspecified; I10 Essential (primary) hypertension; E11.9 Type 2 diabetes mellitus without complications; Z87.891 Personal history of nicotine dependence
CPT/HCPCS: 36415; 71020; 80053; 81001; 82150; 82550; 82553; 83690; 83735; 83880; 84443; 84484; 85025; J1815

== ENCOUNTER → 2018-11-04 | Outpatient (CLI) | payer SELFPAY | LOC: YCFC.O 07:43 | PROVIDERS: ATTEND Family Medicine | DX: E11.9 Type 2 diabetes mellitus without complications (principal) ==

== ENCOUNTER 2020-08-18 04:58 | Emergency (ER) | payer SELFPAY ==
[2020-08-18] MEDS ORDERED: IPRATROPIUM/ALBUTEROL 3 ML VIAL NEB ONE (05:25)
[2020-08-18] MEDS ORDERED: METOPROLOL TARTRATE 50 MG TAB PO ONE (05:26)
--- NOTE | 2020-08-18 05:32 | ED.PDOC ---
History of Present Illness - General Chief Complaint: Blood Pressure Problem Stated Complaint: high B/P reading at home Time Seen by Provider: 08/18/20 05:14 Source: patient Exam Limitations: no limitations - History of Present Illness Initial Comments: The patient is a 60-year-old male presented emergency room secondary to waking up an hour ago with little bit of chest pain that resolved after a few minutes. He checked his blood pressure and found his blood pressure to be in the 200s over 100s. It is still there now however the patient's chest pain went away soon after he came. He did take a 40 mg lisinopril, which she does take normally each morning about 30 minutes prior to arrival. He also takes amlodipine 10 mg at night which she reports that he did take last night. He is a diabetic. He normally reports that his blood pressure on the systolic and runs around 160. Again he is currently asymptomatic. No headache or syncope. No palpitations. No diaphoresis. The patient reports that he had a couple of episodes of nausea and vomiting couple days ago and does have intermittent diarrhea related to his metformin use. He denies any fever. He is pleasant and cooperative. He is in no acute distress. He does have some wheezes that are audible without a stethoscope and with stethoscope most wheezes and rales localized to the right lower lobe. No known coronavirus exposure though there has been a surge on local cases recently. Timing/Duration: 1-3 hours Severity: mild Improving Factors: nothing Worsening Factors: nothing Associated Symptoms: chest pain Allergies/Adverse Reactions: Allergies Aspirin Allergy (Verified 08/18/20 05:13) NSAIDs Allergy (Verified 08/18/20 05:13) Penicillins Allergy (Verified 03/19/17 23:53) Home Medications: Ambulatory Orders Lisinopril 40 mg PO QAM 06/29/14 Albuterol Inhaler [Ventolin Hfa Inhaler] 1 puff INH PRN 03/19/17 Fluticasone/Salmeterol 500/50 [Advair 500/50 Diskus] 1 puff INH BID 03/19/17 Metformin HCl [Metformin HCl ER] 850 mg PO BID 03/20/17 Albuterol Sulfate Nebs [Proventil Nebs] 2.5 mg INH QID PRN 03/22/17 Potassium Gluconate [Potassium] 99 mg PO DAILY 10/25/17 Acetaminophen [Tylenol] 500 mg PO PRN 08/18/20 Amlodipine Besylate 10 mg PO QPM 08/18/20 Hydroxychloroquine Sulfate [Hydroxychloroquine Sulfat] 200 mg PO BID 08/18/20 Leflunomide [Arava] 20 mg PO DAILY 08/18/20 Montelukast [Singulair] 10 mg PO DAILY 08/18/20 Sertraline HCl [Zoloft] 100 mg PO DAILY 08/18/20 Sulfasalazine 1,500 mg PO BID 08/18/20 Review of Systems - Review of Systems Constitutional: States: no symptoms reported EENTM: States: no symptoms reported Respiratory: States: no symptoms reported Cardiology: States: chest pain Gastrointestinal/Abdominal: States: no symptoms reported Genitourinary: States: no symptoms reported Musculoskeletal: States: no symptoms reported Skin: States: no symptoms reported Neurological: States: anxiety Endocrine: States: no symptoms reported Hematologic/Lymphatic: States: no symptoms reported All other Systems: No Change from Baseline Past Medical History (General) - Patient Medical History Hx Seizures: No Hx Stroke: No Hx Dementia: No Hx Asthma: Yes Hx of COPD: No Hx Cardiac Disorders: No Hx Congestive Heart Failure: No Hx Pacemaker: No Hx Hypertension: Yes Hx Thyroid Disease: No Hx Diabetes: Yes Hx Gastroesophageal Reflux: No Hx Renal Disease: No Hx Cancer: No Hx of HIV: No Hx Hepatitis C: No Hx MRSA: No - Vaccination History Hx Tetanus, Diphtheria Vaccination: Yes Hx Influenza Vaccination: No Hx Pneumococcal Vaccination: Yes - Social History Hx Tobacco Use: Yes Hx Chewing Tobacco Use: Yes Hx Alcohol Use: No Hx Substance Use: No Hx Substance Use Treatment: No Hx Depression: No Hx Physical Abuse: No Hx Emotional Abuse: No Hx Suspected Abuse: No - Female History Patient : No Family Medical History - Family History Mother Family History: Unknown Name: Phoebe Logan Living Status: Age at (years of age): 62 Cause of : [place] Hx Family Asthma: No Hx Family Congestive Heart Failure: Yes - Mothers side. Hx Family Hypertension: Yes - Siblings. Hx Family Stroke: No Hx Cardiac Disease: Yes - Siblings Hx Family Diabetes: Yes - Siblings Hx Family Cancer: Yes - Sister w/skin CA. Father Family History: Unknown Living Status: Still Living Physical Exam - Physical Exam General Appearance: Alert, Comfortable, No apparent distress Eye Exam: bilateral normal Ears, Nose, Throat: hearing grossly normal, normal pharynx, nasal congestion - Mild Neck: full range of motion, supple Respiratory: no respiratory distress, no accessory muscle use, rales - Right lower lobe, wheezing - Right lower lobe Cardiovascular/Chest: normal peripheral pulses, regular rate, rhythm, no edema Peripheral Pulses: radial,right: 2+, radial,left: 2+, dorsalis pedis,right: 2+, dorsalis pedis,left: 2+ Gastrointestinal/Abdominal: non tender, soft Rectal Exam: heme negative stool Back Exam: no CVA tenderness, no vertebral tenderness Extremity: normal range of motion, non-tender, normal inspection, no pedal edema, normal capillary refill 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 Is not entirely certain that the 2 are directly correlated however given the transient present's of the chest pain, we will go ahead and press more aggressively to reduce the blood pressure. The patient will be receiving 50 mg dose of metoprolol. Chest pain resolved prior to arrival. The patient does have some localized wheezing at the right lower lung field. X-ray will be done. Laboratory work will be done. The patient is going to be tested for coronavirus. He is going to receive a breathing treatment as he does have a history of a COPD exacerbation in the past. The patient otherwise does not appear to be in any acute distress. He is not currently receiving an aspirin due to an aspirin allergy. Assuming the first set of cardiac enzymes are negative and the patient develops no chest jaimee n, we will plan on repeating the cardiac enzymes about 3 hours. Continue following. Care will be assumed by the oncoming ER physician otherwise. candelario collins [phone] - Results/Orders Results/Orders: EKG shows sinus tachycardia at 102 bpm. Very mild right axis deviation. Normal R wave progression. Borderline LVH criteria. No definitive ST segment or T wav e changes indicative of acute ischemia. Normal QT interval. Departure - Departure Clinical Impression: Hypertensive urgency Chest pain Qualifiers: Chest pain type: unspecified Qualified Code(s): R07.9 - Chest pain, unspecified Disposition: Discharge to Home or Self Care Departure Forms: ED Discharge - Pt. Copy, Patient Portal Self Enrollment Home Medications: Ambulatory Orders Lisinopril 40 mg PO QAM 06/29/14 Albuterol Inhaler [Ventolin Hfa Inhaler] 1 puff INH PRN 03/19/17 Fluticasone/Salmeterol 500/50 [Advair 500/50 Diskus] 1 puff INH BID 03/19/17 Metformin HCl [Metformin HCl ER] 850 mg PO BID 03/20/17 Albuterol Sulfate Nebs [Proventil Nebs] 2.5 mg INH QID PRN 03/22/17 Potassium Gluconate [Potassium] 99 mg PO DAILY 10/25/17 Acetaminophen [Tylenol] 500 mg PO PRN 08/18/20 Amlodipine Besylate 10 mg PO QPM 08/18/20 Hydroxychloroquine Sulfate [Hydroxychloroquine Sulfat] 200 mg PO BID 08/18/20 Leflunomide [Arava] 20 mg PO DAILY 08/18/20 Montelukast [Singulair] 10 mg PO DAILY 08/18/20 Sertraline HCl [Zoloft] 100 mg PO DAILY 08/18/20 Sulfasalazine 1,500 mg PO BID 08/18/20
--- NOTE | 2020-08-18 05:38 | RAD ---
EXAM: XR Chest, 1 View CLINICAL HISTORY: The patient is 60 years old and is Male; CP elevated BP TECHNIQUE: Single view of the chest. COMPARISON: March 23, 2017. FINDINGS: Lungs: Infiltrate in the right midlung, likely right upper lobe. No pulmonary vascular congestion. Pleural space: No pneumothorax. Heart: Unremarkable. No cardiomegaly. Mediastinum: Unremarkable. Bones/joints: Old left clavicle fracture. No acute fracture visualized. No free air in the visualized upper abdomen. IMPRESSION: Infiltrate in the right midlung, likely right upper lobe. Correlate clinically for pneumonia. Electronically signed by: Elli Estrada MD 08/18/2020 5:37 AM CDT
[2020-08-18] MEDS ORDERED: AZITHROMYCIN 250 MG TAB PO ONE (05:39)
[2020-08-18] MEDS ORDERED: cefTRIAXone SODIUM 1 GM in SODIUM CHL 0.9% 50ML MIN-BAG+ 50 ML IVPB ONE (05:39)
[2020-08-18] MEDS ORDERED: INSULIN LISPRO 100 UNITS/ML PEN SUBCU ONE (06:50)
[2020-08-18] MEDS ORDERED: cloNIDine HCL 0.1 MG TAB PO ONE (07:00)
[2020-08-18] MEDS ORDERED: SODIUM CHLORIDE 0.9% 1000ML 1,000 ML IVS PRN (07:11)
--- NOTE | 2020-08-18 07:40 | CT ---
EXAM: CT chest angiogram with contrast. INDICATION: Shortness of breath. TECHNIQUE: Contiguous axial CT images of the chest. Intravenous contrast: Present. Protocol: Pulmonary embolus (PE) protocol angiogram. Reformats: MIPs and MPRs created and utilized. DLP 8:30 mGy-cm. This exam was performed according to our departmental dose-optimization program, which includes automated exposure control, adjustment of the mA and/or kV according to patient size and/or use of iterative reconstruction technique. Note: LV=left ventricle. RV=right ventricle. COMPARISON: None. FINDINGS: Upper abdomen: Partially imaged. Thoracic aorta: Unremarkable. Heart: No right atrial thrombus. RV/LV ratio: Within normal limits. Pulmonary arteries: Technical: Adequate opacification to the level of the segmental vessels. Pulmonary embolus: No low-density filling defect to suggest acute PE. Overall embolic burden: None. Mediastinum: Mediastinal lymph nodes measure up to 1.2 cm in size. Right hilar lymph nodes measure up to 1.6 cm. Tracheobronchial tree: There is bronchial wall thickening with mucous plugging within the right lower lobe. Lungs: Lobar consolidation: There are consolidations involving the posterior aspect of the right upper and right lower lobe Pleural effusion: Negative. Pneumothorax: Negative. Other: Negative. Bones: Unremarkable. IMPRESSION: 1. No CT evidence of acute PE. 2. Multifocal pneumonia. 3. Mediastinal and right hilar lymphadenopathy, likely reactive. Electronically signed by: Damian Falcon MD 08/18/2020 7:38 AM CDT
[2020-08-18 08:21] VITALS: O2SAT 93
[2020-08-18 09:18] VITALS: BP 143/84; TEMP 97.5
== END 2020-08-18 09:18 | disposition home or self-care (01) ==
LOC: ER 04:58
DX: I16.0 Hypertensive urgency (principal); E11.65 Type 2 diabetes mellitus with hyperglycemia; J18.9 Pneumonia, unspecified organism; R07.9 Chest pain, unspecified; R00.0 Tachycardia, unspecified; J44.9 Chronic obstructive pulmonary disease, unspecified; Z79.84 Long term (current) use of oral hypoglycemic drugs; Z20.828 Contact with and (suspected) exposure to other viral communicable diseases; Z79.899 Other long term (current) drug therapy; Z88.6 Allergy status to analgesic agent; Z88.0 Allergy status to penicillin; Z87.891 Personal history of nicotine dependence
CPT/HCPCS: 36415; 36416; 71045; 71275; 80053; 81001; 82150; 82550; 82553; 82948; 83690; 83735; 83880; 84443; 84484; 85025; 85379; 85610; 85730; 87040; 87635; 93005; 94640; J0696; J1815; J7030; J7050; J7620; Q0144